=== PATIENT | male | born 1980 | race Caucasian/White ===

== ENCOUNTER 2022-03-16 16:22 | Emergency (ER) | payer OTHER, MEDICAID, SELFPAY ==
[2022-03-16 16:47] VITALS: BP 147/85; PULSE 95; RESP 18; TEMP 36.8; O2SAT 97; BMI 37.2
--- NOTE | 2022-03-16 19:56 | CM.MNRNOTE ---
Patient laying back on gurney, appears relaxed. Updated on plan of care. He is able to ambulate to restroom independently and back to ED room. Call light at the bedside.
--- NOTE | 2022-03-16 20:48 | ED.GENADULT ---
HPI - General Adult General Chief complaint: Upper Respiratory Symptoms Stated complaint: Swelling right gland Time Seen by Provider: 03/16/22 20:00 Source: patient Mode of arrival: Ambulatory History of Present Illness HPI narrative: 41-year-old male nonsmoker with history of sialadenitis presents with a chief complaint of 4 days of pain and swelling underneath the right side of his jaw. He denies any difficulty can drooling secretions or swallowing, denies any shortness of breath. He denies nausea, vomiting or diarrhea. He denies any dental pain or injury. He states that about a year ago he had a similar circumstance and imaging demonstrating a stone. He never developed any abscess and had been referred to an [employer] who recommended the use of antibiotics over any intervention. Due to changes in insurance he had been unable to follow-up or have any intervention. He is otherwise well and free of complaint Related Data Home Medications Medication Instructions Recorded Confirmed HYDROCODONE/ACET 5/500 - 0 PO * DOSE/FREQUENCY ##1 11/11/07 (Hydrocodon-Acetaminophen 5-500) Previous Rx's Medication Instructions Recorded amoxicillin 875 mg-potassium 1 tab PO Q12H #20 tabs 03/16/22 clavulanate 125 mg tablet ketorolac 10 mg tablet 10 mg PO Q6H PRN pain #14 tabs 03/16/22 Allergies Allergy/AdvReac Type Severity Reaction Status Date / Time codeine Allergy ITCHING Verified 03/16/22 20:57 Review of Systems Review of Systems Narrative: GENERAL: Denies chills, fatigue, malaise, fever, sweats. HEENT: See HPI RESPIRATORY: Denies dyspnea, cough, wheezing, hemoptysis, sputum. CARDIOVASCULAR: Denies chest pain, palpitations, orthopnea, edema, GASTROINTESTINAL: Denies nausea, vomiting, abdominal pain, diarrhea, constipation, melena. : Denies dysuria, frequency, incontinence, hematuria, urinary retention. MUSCULOSKELETAL: denies weakness, joint pain, or bony pain SKIN: Denies rash, skin lesions, or other NEUROLOGIC: Denies weakness, headache, numbness, change in speech, confusion, seizures, incoordination. PSYCHIATRIC: No concerning psychosocial issues. 12 point review of systems is negative except for those stated above Patient History Social History Smoking Status: Never smoker Smoking Status: Never smoker alcohol intake frequency: 0-2 drinks per day Substance Use Type: does not use Exam Narrative Exam Narrative: GENERAL: [41] year old patient appears stated age. Well-developed patient, in mild distress. HEAD: Atraumatic. Normocephalic. EYES: Pupils equal round and reactive. Extraocular motions intact. No scleral icterus. No injection or drainage. ENT: Nose without bleeding, purulent drainage. Throat without erythema, tonsillar hypertrophy or exudate. Airway patent. NECK: 3 x 3 cm area of induration with minimal if any overlying erythema in the right submandibular region CARDIOVASCULAR: Regular rate and rhythm without murmurs, gallops, or rubs. RESPIRATORY: Clear to auscultation. Breath sounds equal bilaterally. No wheezes, rales, or rhonchi. GASTROINTESTINAL: Abdomen soft, non-tender, nondistended. EXTREMITIES: No edema or joint tenderness. BACK: Nontender without deformity or crepitance. No flank tenderness. NEURO: AOx3. SKIN: No rash or erythema of visible areas Initial Vital Signs Initial Vital Signs: Vital Signs Temperature 98.3 F 03/16/22 16:47 Pulse Rate 95 H 03/16/22 16:47 Respiratory Rate 18 03/16/22 16:47 Blood Pressure 147/85 H 03/16/22 16:47 Pulse Oximetry 97 03/16/22 16:47 Oxygen Delivery Method 03/16/22 16:47 Course Orders Ordered: Discontinued Medications Hydrocodone Bitart/Acetaminophen (Hydrocodone/Acet 5/325 Prepack) 1 bottle MISC SEEINSTR ONE Stop: 03/16/22 21:04 Last Admin: 03/16/22 21:05 Dose: 1 bottle Documented By: TYLER Amoxicillin/Clavulanate Potassium (Amoxicillin/Clav 875/125 Mg) 1 tab PO NOW ONE Stop: 03/16/22 20:44 Last Admin: 03/16/22 20:58 Dose: 1 tab Documented By: TYLER Vital Signs Vital signs: Vital Signs - 8 hr 03/16/22 21:06 Pulse Rate 79 Respiratory Rate 20 Blood Pressure 189/62 H Pulse Oximetry 100 Oxygen Delivery Method Room Air Medical Decision Making MDM Narrative Medical decision making narrative: Patient with pain and swelling likely a consequence of a recurrence of sialoadenitis. His no signs of sepsis, control secretions and denies any trouble with swallowing or breathing. We did discuss the possible utility of labs and advanced imaging but sure the opinion that it is unlikely to change the course. We elect to just use oral antibiotics and I encouraged him to follow closely with the ear nose and throat doctor he had been referred to earlier in the year but give local ENT contact information for completeness sake. He is given extensive return precautions and questions answered to his apparent satisfaction Discharge Plan Departure Patient Disposition: Home Clinical Impression: Sialadenitis Instructions: Parotitis Activity Restrictions/Additional Instructions: *You have been diagnosed with [right-sided facial swelling, likely a consequence of recurrent sialadenitis with possible infection] *What to do: *Please continue to take your regular medications as directed. [ x] New medication prescriptions sent to your pharmacy: [[facility] in [place]] [ ] New medication written as a paper prescription [ ] No new medications given *Please follow up with your previously established ear nose and throat provider in [place] in 2-3 days, call for an appointment. Let them know you were seen in the Emergency Department and that we ask that you be seen in follow up. As we discussed, if unable to follow-up with them I have included the contact information *If you do not have a primary care provider please contact the [facility] Resource line at [phone]. They will ask some questions about your medical history and help get you set up with a doctor in the community. *Return to Emergency Department if you should have any new, worsening or concerning symptoms Prescriptions: New ketorolac 10 mg tablet 10 mg PO Q6H PRN (Reason: pain) Qty: 14 0RF amoxicillin-pot clavulanate 875-125 mg tablet 1 tab PO Q12H Qty: 20 0RF No Action HYDROCODONE/ACET 5/500 - (Hydrocodon-Acetaminophen 5-500) 0 PO * [place] DOSE/FREQUENCY Qty: 1 Referrals: Rogerio Smith MD [Physician] - Visit Report Forms: Patient Portal/API
[2022-03-16] MEDS: AMOXICILLIN/CLAV 875/125 MG 1 TAB PO (20:58)
[2022-03-16] MEDS: HYDROCODONE/ACET 5/325 PREPACK 1 BOTTLE MISC (21:05)
--- NOTE | 2022-03-16 21:05 | PC.NURSE ---
Patient assessment completed by Dr. Atkins.
[2022-03-16 21:06] VITALS: BP 189/62; PULSE 79; RESP 20; O2SAT 100
== END 2022-03-16 21:06 | disposition home or self-care (01) ==
PROVIDERS: Emergency Provider Emergency Medicine
DX: K11.20 Sialoadenitis, unspecified (principal)
CPT/HCPCS: 99283

== ENCOUNTER 2025-04-22 21:28 | Observation (INO) | payer OTHER, SELFPAY ==
[2025-04-22] VITALS (9 sets, daily range): BP systolic 116–156; BP diastolic 66–97; PULSE 72–90; RESP 13–28; TEMP 36.1; O2SAT 95–99; BMI 38.4
--- NOTE | 2025-04-22 21:35 | DI.RAD.S_ITS ---
PROCEDURE: XR CHEST 1V
--- NOTE | 2025-04-22 21:40 | EKG_ITS ---
[facility]
--- NOTE | 2025-04-22 21:54 | PC.NURSE ---
Patient reports chest pressure in center upper chest after having family argument.
[2025-04-22 22:20] LABS: Add Manual Diff / Slide Review NO; Alanine Aminotransferase 44 IU/L (<50); Albumin 4.3 g/dL (3.5-5.0); Albumin Globulin Ratio 1.5 (1.0-2.8); Alkaline Phosphatase 160 U/L (38-126); Blood Urea Nitrogen 14 mg/dL (9-20); Calcium 9.0 mg/dL (8.4-10.2); Carbon Dioxide 26 mmol/L (22-32); Chloride 99 mmol/L (98-107); Creatine Kinase 95 U/L (55-170); Estimated Glomerular Filt Rate > 60 mL/min (>60); Globulin 2.9 g/dL (1.7-4.1); Glucose 387 mg/dL (70-99); HEMOLYSIS 20 (0-50); Hematocrit 47.1 % (41-53); Hemoglobin 16.0 g/dL (13.5-17.5); Lipase 71 U/L (23-300); Lymphocytes Absolute Auto 1600 /uL (1100-4500); Magnesium 1.8 mg/dL (1.6-2.3); Mean Corpuscular HGB Conc 34.0 % (30-36); Mean Corpuscular Hemoglobin 27.3 PG (26-34); Mean Corpuscular Volume 80.2 fL (80-100); Platelet Count 182 X10^3/uL (150-400); Potassium 3.9 mmol/L (3.4-5.1); Sodium 132 mmol/L (137-145); Total Protein 7.2 g/dL (6.3-8.2)
[2025-04-22 22:31] LABS: NT-proBNP (BNP-Adult 18+) 39 pg/mL (<125); Troponin I < 0.012 ng/mL (0.01-0.034)
[2025-04-22 22:59] LABS: INR 1.0 (0.9-1.3); PTT Partial Thromboplastin Tim 27 SECONDS (25.1-36.5); Prothrombin Time 10.8 SECONDS (9.4-12.5)
--- NOTE | 2025-04-22 23:04 | ED_ITS ---
HPI - Chest Pain
--- NOTE | 2025-04-22 23:04 | ED.CHESTPAIN ---
HPI - Chest Pain General Chief Complaint: Chest Pain Stated Complaint: Chest pains Time Seen by Provider: 04/22/25 22:14 Source: patient Mode of arrival: Wheelchair History of Present Illness HPI narrative: 45-year-old male with no known coronary artery disease, no prior cardiac testing, has history of diabetes, remote smoking, no hyperlipidemia, negative family history. Complains of anterior chest discomfort tightness 5:00 p.m. today, onset in context of argument with , then had noticeable diaphoresis noted by family, no nausea or vomiting. Nonradiating. Not worse with inspiration. Somewhat worse with walking around movements or light exertion. No syncope or presyncopal symptoms. No history of blood clots to legs or lungs, no leg pain or swelling symptoms, however mother has some kind of clotting disorder. No recent cough fevers or chills. No injury trauma new activities. Related Data Home Medications ?Medication ?Instructions ?Recorded ?Confirmed HYDROCODONE/ACET 5/500 - 0 PO * DOSE/FREQUENCY ##1 11/11/07 (Hydrocodon-Acetaminophen 5-500) Previous Rx's ?Medication ?Instructions ?Recorded amoxicillin 875 mg-potassium 1 tab PO Q12H #20 tabs 03/16/22 clavulanate 125 mg tablet ketorolac 10 mg tablet 10 mg PO Q6H PRN pain #14 tabs 03/16/22 Allergies Allergy/AdvReac Type Severity Reaction Status Date / Time codeine AdvReac ITCHING Verified 04/22/25 21:31 Patient History Social History Smoking Status: Never smoker Smoking Status: Never smoker alcohol intake frequency: 0-2 drinks per day Exam Narrative Exam Narrative: GENERAL: Well-developed patient, in mild distress. HEAD: Atraumatic. Normocephalic. EYES: Pupils equal round and reactive. Extraocular motions intact. No scleral icterus. No injection or drainage. ENT: Nose without bleeding, purulent drainage. Throat without erythema, tonsillar hypertrophy or exudate. Airway patent. NECK: Trachea midline. Non tender CARDIOVASCULAR: Regular rate and rhythm without murmurs, gallops, or rubs. RESPIRATORY: Clear to auscultation. Breath sounds equal bilaterally. No wheezes, rales, or rhonchi. GASTROINTESTINAL: Abdomen soft, non-tender, nondistended. EXTREMITIES: No edema or joint tenderness. BACK: Nontender without deformity or crepitance. No flank tenderness. NEURO: AOx3. Motor functions grossly nonfocal. SKIN: No rash or erythema of visible areas Initial Vital Signs Initial Vital Signs: Vital Signs Temperature 97.0 F L 04/22/25 21:31 Pulse Rate 90 04/22/25 21:31 Respiratory Rate 18 04/22/25 21:31 Blood Pressure 156/97 H 04/22/25 21:31 Pulse Oximetry 98 04/22/25 21:31 Oxygen Delivery Method Room Air 04/22/25 21:31 Scores HEART Score Heart Score history: Moderately Suspicious Heart Score EKG: Normal Heart Score Age: 45-64 years old Heart Score risk factors: 1-2 risk factors Heart Score troponin: < or = to normal limit Heart Score Total: 3 Course Orders Ordered: ED Orders 04/22/25 21:35 XR chest 1V Stat EKG-12 Lead Stat 04/22/25 21:45 Complete Blood Count AUTO DIFF Stat Comprehensive Metabolic Panel Stat D Dimer Stat Lipase Stat Magnesium Stat NT-proBNP (BNP-Adult 18+) Stat PTT Partial Thromboplastin [place] Stat Prothrombin Time INR Stat Troponin & CK Cardiac Panel Stat 04/22/25 23:45 Troponin I Stat 04/23/25 stress [NM curtis perf SPECT rest & str] Stat A1C [Hemoglobin A1C% w Est Avg Glu] Routine Lipid Panel Routine 04/23/25 08:00 Trop I [Troponin I] Routine 04/24/25 06:00 Complete Blood Count AUTO DIFF DAILY Acetaminophen (Acetaminophen 325 Mg Tablet) 650 mg PO Q6H PRN PRN Reason: Fever/Mild Pain (1-3) Dextrose (D10w) 100 mls @ 999 mls/hr IV PRN PRN PRN Reason: Hypoglycemia Insulin Glargine (Insulin Glargine 100 Unit/Ml 3ml Pen) 20 unit SUBCUT BEDTIME ISAAC Insulin Human Lispro (Insulin Lispro 100 Unit/Ml 3ml Vial) 0 unit SUBCUT ACHS ISAAC; Protocol Naloxone HCl (Naloxone 0.4 Mg/Ml Vial) 0.2 mg IV Q2MIN PRN PRN Reason: Opiate Reversal Nitroglycerin (Nitroglycerin 0.4 Mg Sl Tab) 0.4 mg SL [id number] PRN PRN Reason: Chest Pain Ondansetron HCl (Ondansetron 4 Mg/2 Ml Inj) 4 mg IV Q8HR PRN PRN Reason: Nausea And Vomiting Discontinued Medications Al Hydrox/Mg Hydrox/Simethicone (Mag Hydrox/Alum/Simeth 30 Ml Udc) 30 ml PO NOW ONE Stop: 04/22/25 23:29 Last Admin: 04/22/25 23:40 Dose: 30 ml Documented By: YODIT Aspirin (Aspirin 81 Mg Chew Tab) 324 mg PO NOW ONE Stop: 04/22/25 21:36 Last Admin: 04/22/25 23:40 Dose: Not Given Documented By: YODTI Aspirin (Aspirin 81 Mg Chew Tab) 324 mg PO NOW ONE Stop: 04/22/25 23:29 Last Admin: 04/22/25 23:40 Dose: 324 mg Documented By: YODIT Sodium Chloride (Normal Saline 0.9%) 1,000 mls @ 1,000 mls/hr IV BOLUS ONE Stop: 04/23/25 02:07 Last Infusion: 04/23/25 03:00 Dose: Infused Documented By: Admin: 04/23/25 01:26 Dose: 1,000 mls/hr Documented By: YODIT Insulin Human Regular (Insulin Regular 100 Unit/Ml 3 Ml Vial) 10 unit SUBCUT NOW ONE Stop: 04/23/25 00:30 Last Admin: 04/23/25 00:43 Dose: 10 unit Documented By: YODIT Co-signed By: MARGIE Morphine Sulfate (Morphine 4 Mg/Ml Inj) 2 mg IV NOW ONE Stop: 04/23/25 01:08 Last Admin: 04/23/25 01:32 Dose: Not Given Documented By: YODIT Morphine Sulfate (Morphine 2 Mg/Ml Inj) 2 mg IV NOW ONE Stop: 04/23/25 01:23 Last Admin: 04/23/25 01:26 Dose: 2 mg Documented By: YODIT Vital Signs Vital signs: Vital Signs - 8 hr 04/22/25 21:31 04/22/25 21:44 04/22/25 22:00 Temperature 97.0 F L Pulse Rate 90 86 80 Respiratory Rate 18 20 28 H Blood Pressure 156/97 H 126/96 H 135/76 Pulse Oximetry 98 95 Oxygen Delivery Method Room Air Room Air 04/22/25 22:30 04/22/25 23:00 04/22/25 23:27 Temperature Pulse Rate 75 72 77 Respiratory Rate 18 16 16 Blood Pressure 123/66 116/70 Pulse Oximetry 95 95 95 Oxygen Delivery Method Room Air Room Air 04/22/25 23:28 04/22/25 23:28 04/22/25 23:30 Temperature Pulse Rate 78 78 Respiratory Rate 14 16 Blood Pressure 140/83 Pulse Oximetry 99 98 Oxygen Delivery Method Room Air 04/22/25 23:31 04/22/25 23:31 04/23/25 00:00 Temperature Pulse Rate 76 Respiratory Rate 13 Blood Pressure 143/79 H 128/81 Pulse Oximetry 97 Oxygen Delivery Method 04/23/25 00:00 04/23/25 00:30 04/23/25 00:30 Temperature Pulse Rate 73 70 Respiratory Rate 18 18 Blood Pressure 123/72 Pulse Oximetry 97 96 Oxygen Delivery Method 04/23/25 01:00 04/23/25 01:00 04/23/25 01:30 Temperature Pulse Rate 68 78 Respiratory Rate 15 19 Blood Pressure 120/79 Pulse Oximetry 96 98 Oxygen Delivery Method Room Air Room Air 04/23/25 01:30 04/23/25 02:00 04/23/25 02:00 Temperature Pulse Rate 60 Respiratory Rate 15 Blood Pressure 135/84 147/69 H Pulse Oximetry 96 Oxygen Delivery Method 04/23/25 02:30 04/23/25 02:30 04/23/25 03:00 Temperature Pulse Rate 63 82 Respiratory Rate 16 19 Blood Pressure 124/72 Pulse Oximetry 97 97 Oxygen Delivery Method Room Air 04/23/25 03:00 Temperature Pulse Rate Respiratory Rate Blood Pressure 119/77 Pulse Oximetry Oxygen Delivery Method MDM - Chest Pain Lab Data Attestation: I reviewed the patient's lab results. Lab results narrative: White blood cell count 7100, hemoglobin 16, platelets 182,000. Glucose 387, known diabetes, serum CO2 26, anion gap 5. Potassium 3.9 normal. Alkaline phosphatase slight elevation, other liver functions normal. Lipase normal. Troponin negative/unmeasurable. BNP 39 not elevated. 04/22/25 21:45 04/22/25 21:45 Labs: Lab Results 04/22/25 04/22/25 04/23/25 Range/Units 21:45 23:45 02:30 WBC 7.1 (4.5-11.0) X10^3/uL RBC 5.87 (4.5-5.9) X10^6/uL Hgb 16.0 (13.5-17.5) g/dL Hct 47.1 (41-53) % MCV 80.2 (80-100) fL MCH 27.3 (26-34) PG MCHC 34.0 (30-36) % RDW 13.4 (11.6-14.8) % Plt Count 182 (150-400) X10^3/uL Neut % (Auto) 67.2 (50-75) % Lymph % (Auto) 22.6 L (25-40) % [place] % (Auto) 4.5 (3-14) % Eos % (Auto) 1.8 L (2-4) % Baso % (Auto) 3.9 H (0-2) % Neut # (Auto) 4800 (0415-8742) /uL Lymph # (Auto) 1600 (8676-6361) /uL [place] # (Auto) 300 (0-900) /uL Eos # (Auto) 100 (0-450) /uL Baso # (Auto) 300 H (0-100) /uL PT 10.8 (9.4-12.5) SECONDS INR 1.0 (0.9-1.3) APTT 27 (25.1-36.5) SECONDS D-Dimer 421 (<500) ng/ml Sodium 132 L (137-145) mmol/L Potassium 3.9 (3.4-5.1) mmol/L Chloride 99 (98-107) mmol/L Carbon Dioxide 26 (22-32) mmol/L BUN 14 (9-20) mg/dL Creatinine 0.57 L (0.66-1.25) mg/dL Estimated GFR > 60 (>60) mL/min BUN/Creatinine Ratio 24.6 H (6-22) Glucose 387 H (70-99) mg/dL POC Whole Bld Glucose 286 H (70-99) mg/dL Calcium 9.0 (8.4-10.2) mg/dL Magnesium 1.8 (1.6-2.3) mg/dL Total Bilirubin 0.4 (0.2-1.3) mg/dL AST 30 (17-59) IU/L ALT 44 (<50) IU/L Alkaline Phosphatase 160 H (38-126) U/L Total Creatine Kinase 95 (55-170) U/L Troponin I < 0.012 < 0.012 (0.01-0.034) ng/mL NT-Pro-B Natriuret Pep 39 (<125) pg/mL Total Protein 7.2 (6.3-8.2) g/dL Albumin 4.3 (3.5-5.0) g/dL Globulin 2.9 (1.7-4.1) g/dL Albumin/Globulin Ratio 1.5 (1.0-2.8) Lipase 71 (23-300) U/L Imaging Data Chest x-ray: Radiologist's Impression: [address] [address] XRay Report Signed Patient: Rafael Gil MR#: [id number] : 1980 Acct:[id number] Age/Sex: 45 / M Date of Service: 04/22/25 Loc: ED Accession Number: [id number] Procedure: XR chest 1V Ordering Provider: Beau Menard MD PROCEDURE: XR CHEST 1V INDICATIONS: Chest Pain TECHNIQUE: One view of the chest was acquired. COMPARISON: None. FINDINGS AND IMPRESSION: Low lung volumes. No airspace consolidation or pleural effusion on this single view study. Normal heart size. Unremarkable osseous findings. Dictated by: Johny Wyatt M.D. on 04/22/2025 at 21:58 Approved by: Johny Wyatt M.D. on 04/22/2025 at 21:59 ECG Data Attestation: I personally reviewed and interpreted this ECG as follows: Interpretation: 2140, normal sinus rhythm with rate of 86, no obvious ST segment elevation changes. Incomplete right bundle branch block pattern noted. MT 160, QRS 114, QTC 459. [facility] Narrative Medical decision making narrative: 45-year-old male with history of diabetes, no known coronary artery disease, has anterior chest discomfort for the last few hours that is largely resolved, minimal residual symptoms. He took a baby aspirin earlier today, no other treatments tried. Afebrile, sirs screen negative. No chest wall tenderness on exam. Screening EKG without obvious ischemic changes. Chest x-ray and labs pending. Had baby aspirin, we will give additional aspirin. Residual chest discomfort soft blood pressure we will hold nitroglycerin. Morphine 2 mg IV given with resolution of residual pain. Heart score = 3 EKG normal sinus rhythm with rate of 86, no obvious ischemic changes, some wandering baseline effect noted. Chest x-ray no acute changes. See radiology report. Lab data: White blood cell count 7100, hemoglobin 16, platelets [id number]. Glucose 387, known diabetes, serum CO2 26, anion gap 5. Potassium 3.9 normal. Alkaline phosphatase slight elevation, other liver functions normal. Lipase normal. Troponin negative/unmeasurable. BNP 39 not elevated. Mother with history of factor 5 deficiency, could SNF or VTE. D-dimer sent. D-dimer 425 not elevated. Await interval repeat troponin. 0245, case discussed with cardiology Dr. Capone, advises admission for stress testing which should be available later today this Wednesday. We will contact hospitalist. Critical Care Time Critical Care Time Critical Care Time: Yes Total Critical Care Time: 35 Attestation: The high probability of a clinically significant, sudden or life threatening deterioration of the [cardiopulmonary] system(s) required my full and direct attention, intervention and personal management. The aggregate critical care time was [35] minutes. This time is in addition to time spent performing reported procedures but includes the following: [x] Data Review and interpretation [x] Patient assessment and monitoring of vital signs [x] Documentation [x] Medication orders and management Discharge Plan Departure Patient Disposition: Admitted as Observation Clinical Impression: Chest pain, History of diabetes mellitus Admit Date/Time: 04/23/25 03:02 Admit Provider: Manjinder Correa
[2025-04-22] MEDS: ASPIRIN 81 MG CHEW TAB 324 MG PO (23:40)
[2025-04-22] MEDS: MAG HYDROX/ALUM/SIMETH 30 ML UDC PO (23:40)
[2025-04-23] VITALS (14 sets, daily range): BP systolic 112–147; BP diastolic 57–86; PULSE 59–82; RESP 13–19; TEMP 35.7–36.2; O2SAT 96–98; BMI 38.4
[2025-04-23 00:34] LABS: Troponin I < 0.012 ng/mL (0.01-0.034)
[2025-04-23] MEDS: INSULIN REGULAR 100 UNIT/ML 3 ML VIAL 10 UNIT SUBCUT (00:43)
[2025-04-23] MEDS: MORPHINE 2 MG/ML INJ IV ×2 (01:26→05:46)
[2025-04-23] MEDS: SODIUM CHLORIDE 0.9% 1,000 ML 1000 ML IV (01:26)
--- NOTE | 2025-04-23 03:35 | P.HP_ITS ---
History of Present Illness
--- NOTE | 2025-04-23 03:35 | PM.HP.1 ---
History of Present Illness History of Present Illness Date Patient Seen: 04/23/25 Time Patient Seen: 03:36 Chief complaint: Chest pains Narrative: 45-year-old male with past medical history of insulin-dependent diabetes and remote history of tobacco use presents with complaint of chest pain. Per the patient report, the patient started to have acute onset of chest pain around 5 PM today. The patient states that his chest pain is left sided, pressure-like, nonradiating and associated with some diaphoresis. The patient however denies any known history of coronary disease or family history of coronary disease. The patient states that exertion does make the pain slightly worse. The patient otherwise denies any recent fever, chills, nausea, vomiting, diarrhea, shortness of breath or syncope. In the emergency room, the patient is hemodynamically stable. Labs shows Trope negative x 2 and a glucose in the 380s. EKG shows no sign of acute ischemia. Chest x-ray was clear. D-dimer was not significantly elevated. The patient does have a heart score of 3. ER physician did request for admission to rule out ACS. Farmer General was consulted and recommended a stress test in the morning if tropes are negative. The patient remains chest pain-free while in the ER. [facility] Social History Smoking Status: Never smoker Meds Home Medications and Allergies Home Medications ?Medication ?Instructions ?Recorded ?Confirmed ?Type HYDROCODONE/ACET 5/500 - 0 PO * DOSE/FREQUENCY ##1 11/11/07 History (Hydrocodon-Acetaminophen 5-500) amoxicillin 875 mg-potassium 1 tab PO Q12H #20 tabs 03/16/22 Rx clavulanate 125 mg tablet ketorolac 10 mg tablet 10 mg PO Q6H PRN pain #14 tabs 03/16/22 Rx Allergies Allergy/AdvReac Type Severity Reaction Status Date / Time codeine AdvReac ITCHING Verified 04/22/25 21:31 Review of Systems Review of Systems ROS: Yes All systems reviewed with the patient and are negative except as otherwise documented Exam Vital Signs (past 8 hours): - 04/22/25 21:31 04/22/25 21:44 04/22/25 22:00 Temperature 97.0 F L Pulse Rate 90 86 80 Respiratory Rate 18 20 28 H Blood Pressure 156/97 H 126/96 H 135/76 Pulse Oximetry 98 95 Oxygen Delivery Method Room Air Room Air 04/22/25 22:30 04/22/25 23:00 Temperature Pulse Rate 75 72 Respiratory Rate 18 16 Blood Pressure 123/66 116/70 Pulse Oximetry 95 95 Oxygen Delivery Method Room Air Room Air Oxygen Delivery Method Room Air Narrative Exam Narrative: Physical Exam: GENERAL: The patient is not in any acute distressed. Awake and alert. HEENT: Nonicteric sclerae, PERRLA, EOMI. Oropharynx clear. Moist mucous membranes. Conjunctivae appear well perfused. HEART: Regular rate and rhythm without murmurs. No lower extremities edema. LUNGS: Clear to auscultation bilaterally. No wheezing, crackles or rhonchi ABDOMEN: Soft, positive bowel sounds, nontender. SKIN: No rash, no excessive bruising, petechiae, or purpura. NEUROLOGIC: AxO x 3. Cranial nerves II-XII intact without motor/sensory deficit. Objective Labs 04/22/25 21:45 04/22/25 21:45 Labs: Laboratory Results - last 24 hr 04/22/25 04/22/25 04/23/25 21:45 23:45 02:30 WBC 7.1 RBC 5.87 Hgb 16.0 Hct 47.1 MCV 80.2 MCH 27.3 MCHC 34.0 RDW 13.4 Plt Count 182 Neut % (Auto) 67.2 Lymph % (Auto) 22.6 L [place] % (Auto) 4.5 Eos % (Auto) 1.8 L Baso % (Auto) 3.9 H Neut # (Auto) 4800 Lymph # (Auto) 1600 [place] # (Auto) 300 Eos # (Auto) 100 Baso # (Auto) 300 H PT 10.8 INR 1.0 APTT 27 D-Dimer 421 Sodium 132 L Potassium 3.9 Chloride 99 Carbon Dioxide 26 BUN 14 Creatinine 0.57 L Estimated GFR > 60 BUN/Creatinine Ratio 24.6 H Glucose 387 H POC Whole Bld Glucose 286 H Calcium 9.0 Magnesium 1.8 Total Bilirubin 0.4 AST 30 ALT 44 Alkaline Phosphatase 160 H Total Creatine Kinase 95 Troponin I < 0.012 < 0.012 NT-Pro-B Natriuret Pep 39 Total Protein 7.2 Albumin 4.3 Globulin 2.9 Albumin/Globulin Ratio 1.5 Lipase 71 Assessment & Plan Assessment & Plan narrative: Chest pain. Admit the patient to telemetry as observation. Of note patient is now chest pain-free. Tropes were negative x 2 and EKG shows no sign of acute ischemia. Continue to trend Trope. Farmer General consulted and recommended stress test in the morning. Continue aspirin. Lipid panel and A1c ordered. Insulin-dependent diabetes. Glucose in 300. Resume home dose subcu insulin and monitor glucose with sliding scale. DVT prophylaxis SCDs due to observational status. CODE STATUS full code. Disposition likely home in 1 to 2 days. - As the provider of this telehealth evaluation, requested by the patient's evaluating physician, I attest that I introduced myself to the patient, provided my credentials and determined that telemedicine via a real-time, 2 way interactive audio and video platform is an appropriate and effective means of providing this service. - I reviewed the patient's chart and had a discussion with the member of the patient's treatment team. - The patient and I mutually agreed with continuation of this evaluation via telemedicine. The patient consented for the telemedicine evaluation. - This virtual encounter was taken place from [place] by Dr. Manjinder Correa. The patient was evaluated at [facility]. The encounter was approximately 35 minutes. The nurse was present during the entire time of the encounter and was able to assists with exam/stethoscope. Time-Based Coding :: [TOTAL MINUTES] spent with patient and on the chart (including review of chart, obtaining history, exam, reviewing outside data, placing orders, documenting exam and treatment plan, and counseling patient) on [DATE].
[2025-04-23] MEDS: NITROGLYCERIN 0.4 MG SL TAB SL (04:46)
--- NOTE | 2025-04-23 04:58 | PC.NURSE ---
pt arrived to 212. CP with exertion. not subsiding with rest after several minutes. repeat ekg done. no acute change per Alyson head charger and this RN. ntg 1/150 SL given, CP subsiding. radiating to shoulder. no other sx's. like the CP in the ER. in the ER morphine was given and it went away. NPO for treadmill this am. Dr. Marcos Correa hospitalist notified and had seen pt on remote viewscreen access in the ER. vss before and after ntg.
--- NOTE | 2025-04-23 05:17 | EKG_ITS ---
[facility]
[2025-04-23] MEDS: ACETAMINOPHEN 325 MG TABLET 650 MG PO (05:46)
--- NOTE | 2025-04-23 07:36 | P.HP_ITS ---
History of Present Illness
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
[2025-04-23 08:30] LABS: Hemoglobin A1C% w Est Avg Glu 12.4 % (4.0-6.0)
[2025-04-23 08:40] LABS: Cholesterol 165 mg/dL (140-199); HDL Cholesterol 39 mg/dL (40-60); Triglycerides 218 mg/dL (35-150)
[2025-04-23 08:41] LABS: Blood Urea Nitrogen 13 mg/dL (9-20); Calcium 8.5 mg/dL (8.4-10.2); Carbon Dioxide 28 mmol/L (22-32); Chloride 102 mmol/L (98-107); Estimated Glomerular Filt Rate > 60 mL/min (>60); Glucose 237 mg/dL (70-99); HEMOLYSIS < 15 (0-50); Potassium 3.9 mmol/L (3.4-5.1); Sodium 134 mmol/L (137-145)
[2025-04-23 08:44] LABS: Troponin I < 0.012 ng/mL (0.01-0.034)
[2025-04-23] MEDS: INSULIN LISPRO 100 UNIT/ML 3ML VIAL SUBCUT ×4 (08:56→21:19)
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
[2025-04-23] MEDS: IBUPROFEN 600 MG TABLET PO (18:29)
[2025-04-23] MEDS: ATORVASTATIN 20 MG TABLET 10 MG PO (21:20)
[2025-04-23] MEDS: INSULIN GLARGINE 100 UNIT/ML 3ML PEN 30 UNIT SUBCUT (21:22)
[2025-04-24 00:09] VITALS: BP 120/60; PULSE 70; RESP 16; TEMP 35.7; O2SAT 99
[2025-04-24 04:00] VITALS: BP 110/65; RESP 16; TEMP 35.9; O2SAT 99
[2025-04-24 05:54] LABS: Add Manual Diff / Slide Review NO; Hematocrit 43.1 % (41-53); Hemoglobin 14.8 g/dL (13.5-17.5); Lymphocytes Absolute Auto 2700 /uL (1100-4500); Mean Corpuscular HGB Conc 34.3 % (30-36); Mean Corpuscular Hemoglobin 27.5 PG (26-34); Mean Corpuscular Volume 80.4 fL (80-100); Platelet Count 196 X10^3/uL (150-400)
--- NOTE | 2025-04-24 07:49 | P.DS_ITS ---
History of Present Illness
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
[2025-04-24 08:00] VITALS: BP 137/87; PULSE 68; RESP 19; TEMP 36.2; O2SAT 99
[2025-04-24] MEDS: INSULIN LISPRO 100 UNIT/ML 3ML VIAL SUBCUT ×2 (08:58→12:56)
[2025-04-24] MEDS: ASPIRIN EC 81 MG TABLET PO (09:01)
[2025-04-24] MEDS: SODIUM CHLORIDE 0.9% FLUSH 10 ML IV (09:02)
[2025-04-24 12:00] VITALS: BP 123/81; PULSE 97; RESP 19; TEMP 36.6; O2SAT 97
--- NOTE | 2025-04-24 12:18 | DIET.CONS ---
Dietary Consultation Note Admission Date: 04/23/2025 03:02 Assessment: 45 y M admitted for chest pain. RD screened per hospitalist request d/t uncontrolled DM. Met with pt at bedside. Reports hx of DM and taking lantus 36 units. Reports dose will now be 50 units. Has CGMs he uses at home, last one on was 3 wks ago. Difficult time staying on, uses additional strip to help keep them on. Open to educ and OP appts. Experiencing lots of stress with work lately. Has been very thirsty. Notes sometimes feeling some symptoms of lows around 150s. Is going to switch to SF mochas now Diet recall: B-eggs, michelle, 2 sl ww toast, mocha w sugar L-sandwich turkey 7 pm D-homemade or pizza (1 sl) sometimes ice cream or toast before bed (bed at midnight) Milk or oj with dinner Ht: 175.26 cm Wt: 117.934 kg BMI: 38.4 Last BM: () MNA: 14 Hi Score: 21 Diet: 04/23/25 Breakfast Carbohydrate Consistent Diet Diet Modifications: Carbohydrate level: Medium (3 CHO) Reflex DM orders: No Food Texture: Level 7 - Regular Liquid Consistency: Level 0 - Thin Heart Healthy Diet Diet Modifications: Nutrition Percent Meal Consumed 100% 04/23/25 18:00 Labs: RBC 5.36 X10^6/uL (4.5-5.9) 04/24/25 04:45 Hgb 14.8 g/dL (13.5-17.5) 04/24/25 04:45 Hct 43.1 % (41-53) 04/24/25 04:45 Creatinine 0.62 mg/dL (0.66-1.25) L 04/23/25 08:15 Hemoglobin A1c 12.4 % (4.0-6.0) H 04/23/25 08:15 NT-Pro-B Natriuret Pep 39 pg/mL (<125) 04/22/25 21:45 Nutrition Diagnosis: Altered nutrition related labs values (A1c) r/t food and nutrition related knowledge deficit aeb A1c 12.4% Interventions: -Plate Method, impact of macronutrients on blood sugar, meal timing, carbohydrate counting, pairing macronutrients and spreading out carbohydrates for better blood glucose management -Recommended servings for carbohydrates at meals and snacks -Provided handout on BG numbers to aim for and A1c to aim for -Discussed symptoms of high BG -Discussed using BG meter to test if suspecting hypoglycemia and when to treat <70 and how with handout provided -Reached out to scheduling to request a referral from his PCP EER: 45 g CHO, 15-30 g CHO at snacks Monitoring/Evaluations: f/u in OP setting Electronically Signed by: Santa Gonzales 04/24/25 12:18 Clinical Dietitian [address] [address]
--- NOTE | 2025-04-24 15:02 | PC.NURSE ---
Discharge Note Patient A&O, VSS, RA, no complaints of pain/discomfort. Discharge packet reviewed with patient, all questions/concerns addressed. PIV/TELE discontinued. Patient able to dress self and pack all belongings. Patient taken down via wheelchair to [facility], accompanied by .
--- NOTE | 2025-04-24 15:11 | CM.DPNOTE ---
DCP note PLODDER OPERATOR reviewed EMR per provider, likely to dc after 2nd part of stress test. no needs. Per provider notes later in afternoon, pt reported some anxiety. Provider prescribed new panic attack med and for pt to f/u with PCP. PLODDER OPERATOR attempted to meet with pt about OP MH resources. pt already left. PLODDER OPERATOR attempted to call pt. went to , box full unable to leave message P: dc today home with partner and OP PCP f/u. CM team will continue to follow as needed for DCP Coordination BEBE Pantoja
== END 2025-04-24 14:30 | disposition home or self-care (01) ==
LOC: ED 22:14 → AC 04-23 03:02
PROVIDERS: Admitting Provider Internal Medicine; Emergency Provider Emergency Medicine; PCP Student in an Organized Health Care Education/Training Program; Referring Provider Emergency Medicine; Visit Provider Internal Medicine
DX: R07.9 Chest pain, unspecified (principal); R61 Generalized hyperhidrosis; E11.9 Type 2 diabetes mellitus without complications; E66.9 Obesity, unspecified; Z87.891 Personal history of nicotine dependence; Z79.4 Long term (current) use of insulin; Z68.38 Body mass index [BMI] 38.0-38.9, adult
CPT/HCPCS: 36415; 71045; 78452; 80048; 80053; 80061; 82550; 82962; 83036; 83690; 83735; 83880; 84484; 85025; 85379; 85610; 85730; 93005; 93017; 96361; 96372; 96374; 96376; 99284; G0378; A9502; J1815; J2270; J7030